=== PATIENT | female | born 1940 | race American Indian/Alaskan Native ===

== ENCOUNTER 2017-07-02 08:03 | Emergency (ER) | payer MEDICARE ==
[2017-07-02 08:17] VITALS: BP 169/78
--- NOTE | 2017-07-02 11:27 | XRay Report ---
LEFT ANKLE, 3 views: History: Left ankle pain after fall. Bone mineralization is normal. No acute osseous abnormality or joint pathology is identified. There is severe diffuse soft tissue swelling. IMPRESSION: Soft tissue swelling. No acute osseous injury identified.
--- NOTE | 2017-07-02 11:57 | Emergency Department Report ---
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 Complaint: extremity pain Onset/Timin -: days(s) Location: left History of Same: No Radiation: none Severity scale (0 -10): 4 Quality: aching Consistency: constant Worsens with: nothing Associated Symptoms: denies other symptoms - Related Data Previous Rx's Medication Instructions Recorded Last Taken Type Ibuprofen 600 mg PO Q4-6H #30 tablet 07/02/17 Unknown Rx Allergies Allergy/AdvReac Type Severity Reaction Status Date / Time No Known Allergies Allergy Unverified 07/02/17 08:10 ED Review of Systems ROS: Stated complaint: LEFT FOOT SWOLLEN Other details as noted in HPI Constitutional: denies: chills, fever Eyes: denies: eye pain, eye discharge, vision change ENT: denies: ear pain, throat pain Respiratory: denies: cough, shortness of breath, wheezing Cardiovascular: denies: chest pain, palpitations Endocrine: no symptoms reported Gastrointestinal: denies: abdominal pain, nausea, diarrhea Genitourinary: denies: urgency, dysuria, discharge Musculoskeletal: joint swelling. denies: back pain, arthralgia Skin: denies: rash, lesions Neurological: denies: headache, weakness, paresthesias Psychiatric: denies: anxiety, depression Hematological/Lymphatic: denies: easy bleeding, easy bruising ED Past Medical Hx - Past Medical History Previous Medical History?: Yes Hx Hypertension: Yes Additional medical history: high cholestrol/otseporesis - Surgical History Past Surgical History?: No - Social History Smoking Status: Never Smoker Substance Use Type: None - Medications Home Medications: Home Medications Medication Instructions Recorded Confirmed Last Taken Type Ibuprofen 600 mg PO Q4-6H #30 tablet 07/02/17 Unknown Rx ED Physical Exam - General Limitations: Physical Limitation General appearance: alert, in no apparent distress - Head Head exam: Present: atraumatic, normocephalic - Eye Eye exam: Present: normal appearance - ENT ENT exam: Present: mucous membranes moist - Neck Neck exam: Present: normal inspection - Respiratory Respiratory exam: Present: normal lung sounds bilaterally. Absent: respiratory distress - Cardiovascular Cardiovascular Exam: Present: regular rate, normal rhythm. Absent: systolic murmur, diastolic murmur, rubs, gallop - GI/Abdominal GI/Abdominal exam: Present: soft, normal bowel sounds - Extremities Exam Extremities exam: Present: normal inspection - Expanded Lower Extremity Exam Left Ankle exam: Present: tenderness, swelling - Back Exam Back exam: Present: normal inspection - Neurological Exam Neurological exam: Present: alert, oriented X3 - Psychiatric Psychiatric exam: Present: normal affect, normal mood - Skin Skin exam: Present: warm, dry, intact, normal color. Absent: rash ED Course Vital Signs 07/02/17 08:11 Temperature 98.5 F Pulse Rate 77 Blood Pressure 169/78 O2 Sat by Pulse 99 Oximetry ED Medical Decision Making - Radiology Data left ankle edema Impression :soft tissue swelling no acute osseous injury identified - Medical Decision Making Left ankle sprain susan wrap and follow up with orthopedic Critical care attestation.: If time is entered above; I have spent that time in minutes in the direct care of this critically ill patient, excluding procedure time. ED Disposition Clinical Impression: Left ankle sprain Qualifiers: Encounter type: initial encounter Involved ligament of ankle: other ligament Qualified Code(s): S93.492A - Sprain of other ligament of left ankle, initial encounter Disposition: TO HOME OR SELFCARE Is pt being admited?: No Does the pt Need Aspirin: No Condition: Stable Prescriptions: Ibuprofen 600 mg PO Q4-6H #30 tablet Referrals: PRIMARY CARE, [Primary Care Provider] - 3-5 Days Time of Disposition: 12:03
== END 2017-07-02 12:17 | disposition home or self-care (01) ==
LOC: ED 08:03
DX: S93.402A Sprain of unspecified ligament of left ankle, initial encounter (principal); I10 Essential (primary) hypertension; E78.00 Pure hypercholesterolemia, unspecified; X58.XXXA Exposure to other specified factors, initial encounter; Y93.89 Activity, other specified; Y92.89 Other specified places as the place of occurrence of the external cause; Y99.8 Other external cause status
CPT/HCPCS: 99283

== ENCOUNTER 2020-05-21 15:31 | Emergency (ER) | payer MEDICARE ==
[2020-05-21 21:24] VITALS: BP 177/86
--- NOTE | 2020-05-21 21:30 | Emergency Department Report ---
ED Dizziness HPI - General Chief Complaint: Dizziness Stated Complaint: DIZZY Time Seen by Provider: 05/21/20 21:11 Source: patient Mode of arrival: Ambulatory Limitations: No Limitations - History of Present Illness Initial Comments: Chief complaint: "I just have been dizzy." HPI: This is a 79-year-old female with history of hypertension, hyperlipidemia, osteoporosis, bladder prolapse who presents with lightheadedness, dizziness since Tuesday. She started taking metronidazole on Tuesday prescribed by her primary care provider. Since starting that medicine on Tuesday, she had lightheadedness dizziness. She denies headache. She denies blurry vision. She denies chest pain. She denies abdominal pain. Her symptoms have improved. However she wanted to ensure that she did not have a stroke. Her PCP instructed her to stop taking the medication. No previous history of stroke. No previous history of heart attack. Patient is followed by lawn care specialist for a heart murmur. 2 months ago patient fell onto her left shoulder. She felt a knot in the area. MD Complaint: dizziness, lightheadedness -: Gradual, days(s) (5 days ago) Timing: gradual onset Description: lightheadedness History of Same: No History of Trauma: No Improves With: rest Worsens With: movement Associated Symptoms: denies other symptoms - Related Data Previous Rx's Medication Instructions Recorded Last Taken Type Ibuprofen 600 mg PO Q4-6H #30 tablet 07/02/17 Unknown Rx Allergies Allergy/AdvReac Type Severity Reaction Status Date / Time No Known Allergies Allergy Unverified 07/02/17 08:10 ED Review of Systems ROS: Stated complaint: DIZZY Other details as noted in HPI Comment: All other systems reviewed and negative Constitutional: denies: fever, malaise Respiratory: denies: cough, shortness of breath Cardiovascular: denies: chest pain, palpitations Gastrointestinal: denies: abdominal pain, nausea, vomiting Neurological: denies: headache, weakness, numbness, paresthesias, confusion, abnormal gait, vertigo ED Past Medical Hx - Past Medical History Previous Medical History?: Yes Hx Hypertension: Yes Additional medical history: high cholestrol/otseporesis - Surgical History Past Surgical History?: No - Social History Smoking Status: Never Smoker - Medications Home Medications: Home Medications Medication Instructions Recorded Confirmed Last Taken Type Ibuprofen 600 mg PO Q4-6H #30 tablet 07/02/17 Unknown Rx ED Physical Exam - General Limitations: No Limitations, Other (Normal steady gait without assistance) General appearance: alert, in no apparent distress - Head Head exam: Present: atraumatic, normocephalic - Eye Eye exam: Present: normal appearance - ENT ENT exam: Present: mucous membranes moist - Neck Neck exam: Present: normal inspection, full ROM - Respiratory Respiratory exam: Present: normal lung sounds bilaterally. Absent: respiratory distress, wheezes, rales, rhonchi - Cardiovascular Cardiovascular Exam: Present: regular rate, normal rhythm, normal heart sounds. Absent: systolic murmur, diastolic murmur, rubs, gallop - GI/Abdominal GI/Abdominal exam: Present: soft, normal bowel sounds. Absent: distended, tenderness, guarding, rebound - Extremities Exam Extremities exam: Present: normal inspection, other (Left shoulder: Full range of motion, no tenderness, no bruising, no laceration, no deformity or crepitus) - Neurological Exam Neurological exam: Present: alert, oriented X3 - Expanded Neurological Exam Expanded Patient oriented to: Present: person, place, time Speech: Present: fluid speech Cranial nerves: EOM's Intact: Normal Cerebellar function: Finger to Nose: Normal Sensory exam: Upper Extremity Light Touch: Normal Motor strength exam: RUE: 5, LUE: 5, RLE: 5, LLE: 5 Best Eye Response (Linden): (4) open spontaneously Best Motor Response (Lind[place]): (6) obeys commands Best Verbal Response ([place]): (5) oriented Ruth Total: 15 - Psychiatric Psychiatric exam: Present: normal affect, normal mood - Skin Skin exam: Present: warm, dry, intact, normal color. Absent: rash ED Course Vital Signs 05/21/20 05/21/20 16:06 21:23 Temperature 98.6 F Pulse Rate 73 69 Respiratory 18 16 Rate Blood Pressure 106/85 Blood Pressure 177/86 [Right] O2 Sat by Pulse 100 98 Oximetry ED Medical Decision Making - EKG Data EKG shows normal: sinus rhythm, axis, intervals, QRS complexes, ST-T waves Rate: normal - EKG Data Interpretation: normal EKG - Medical Decision Making Ms. Gay presents with lightheadedness. No indication of emergent cause such as CVA, GI bleed, ACS. Possible adverse effect of metronidazole. Patient recently received routine labs in the outpatient setting by her PCP. Consequently I did not feel that further lab testing will be required at this time considering patient is symptom-free. She will follow-up with her PCP tomorrow for further instruction. She understands to call 911 if symptoms return or new symptoms develop. Critical care attestation.: If time is entered above; I have spent that time in minutes in the direct care of this critically ill patient, excluding procedure time. ED Disposition Clinical Impression: Lightheadedness, Dizziness Disposition: DC-01 TO HOME OR SELFCARE Is pt being admited?: No Does the pt Need Aspirin: No Condition: Stable Instructions: Lightheadedness (ED), Dizziness (ED) Referrals: PRIMARY CARE, [Primary Care Provider] - ATUL
== END 2020-05-21 21:39 | disposition home or self-care (01) ==
LOC: ED 15:31
DX: R42 Dizziness and giddiness (principal); I10 Essential (primary) hypertension; Z79.1 Long term (current) use of non-steroidal anti-inflammatories (NSAID)
CPT/HCPCS: 93005; 99282

== ENCOUNTER 2021-04-20 16:28 | Emergency (ER) | payer MEDICARE ==
[2021-04-20 17:00] VITALS: BP 168/72
[2021-04-20 20:35] LABS: Hematocrit 38.2 % (30.3-42.9); Hemoglobin 13.4 gm/dl (10.1-14.3); Mean Corpuscular HGB Conc 35 % (30-34); Mean Corpuscular Volume 93 fl (79-97); Platelet Count 228 K/mm3 (140-440); Red Blood Count 4.12 M/mm3 (3.65-5.03); Red Cell Distribution Width 13.3 % (13.2-15.2)
[2021-04-20 20:45] LABS: Alanine Aminotransferase 12 units/L (7-56); Blood Urea Nitrogen 13 mg/dL (7-17); Calcium 9.4 mg/dL (8.4-10.2); Hemolysis Index 0
[2021-04-20 20:48] LABS: BUN/Creatinine Ratio 19
[2021-04-20 21:05] LABS: Albumin 3.9 g/dL (3.9-5)
--- NOTE | 2021-04-20 21:21 | Emergency Department Report ---
ED General Adult HPI - General Chief complaint: Extremity Problem,Nontraumatic Stated complaint: LT LEG SWELLING/NUMBNESS Time Seen by Provider: 04/20/21 20:05 Source: patient Mode of arrival: Ambulatory Limitations: No Limitations - History of Present Illness Initial comments: 80-year-old female patient with history of hyperlipidemia presents to the [facility] department with complaints of recurrent left lower extremity swelling/numbness starting last month. Patient has been evaluated by her primary care provider for this issue. She underwent imaging earlier this month, which showed "a problem with the blood flow to her legs." Today, her symptoms recurred, and her primary care provider sent her to the emergency department for further evaluation. Patient has no known history of venous thromboembolism. She is not anticoagulated. Symptoms today are consistent with prior flareups. Denies fever, chills, chest pain, shortness of breath, palpitations, weakness, skin color changes. Denies all other complaints at this time. - Related Data Previous Rx's Medication Instructions Recorded Last Taken Type Ibuprofen 600 mg PO Q4-6H #30 tablet 07/02/17 Unknown Rx Allergies Allergy/AdvReac Type Severity Reaction Status Date / Time No Known Allergies Allergy Unverified 07/02/17 08:10 ED Review of Systems ROS: Stated complaint: LT LEG SWELLING/NUMBNESS Other details as noted in HPI Other: GENERAL: Negative for fever. CARDIOVASCULAR: Negative for chest pain. PULMONARY: Negative for shortness of breath. GASTROINTESTINAL: Negative for abdominal pain. MUSCULOSKELETAL: Positive for swelling. NEUROLOGICAL: Positive for numbness INTEGUMENTARY: Negative for rash. ED Past Medical Hx - Past Medical History Previous Medical History?: Yes Hx Hypertension: Yes Additional medical history: high cholestrol/otseporesis - Surgical History Past Surgical History?: Yes Additional Surgical History: eye surgery, leg surgery - Social History Smoking Status: Never Smoker - Medications Home Medications: Home Medications Medication Instructions Recorded Confirmed Last Taken Type Ibuprofen 600 mg PO Q4-6H #30 tablet 07/02/17 Unknown Rx ED Physical Exam - General Limitations: No Limitations - Other Other exam information: General: Awake and alert. No acute distress. Head: Atraumatic, normocephalic. Eyes: EOMI. Pupils are equal and round. Normal sclera and conjunctiva. ENT: Oral mucosa is moist. Normal pharyngeal exam. Neck: Supple. No lymphadenopathy. Pulmonary: No respiratory distress. Clear to auscultation bilaterally. Cardiac: Regular rate and rhythm. Pulses are palpable and equal bilaterally. There is 1+ pretibial pitting edema to the left lower leg. Skin: Warm and dry. No rashes. Abdomen: Soft, non-tender, non-protuberant. No guarding, rigidity, or rebound. Bowel sounds are normal. No organomegaly or masses noted. Back: Normal alignment. No CVA tenderness. Extremities: Symmetrical. Full range of motion intact. Neurological: Alert and oriented, appropriately interactive, no focal deficits. Strength and sensation intact throughout. Ambulatory without assistance. Cranial nerves II-XII intact. Psych: Cooperative. Appropriate mood and affect. Speech is evenly metered. Thoughts are logically construed. ED Course Vital Signs 04/20/21 04/20/21 16:59 22:50 Temperature 98.2 F Pulse Rate 64 57 L Respiratory 20 17 Rate Blood Pressure 168/72 O2 Sat by Pulse 99 97 Oximetry ED Medical Decision Making - Lab Data Result diagrams: 04/20/21 19:10 04/20/21 19:10 - Medical Decision Making Differential diagnosis including but not limited to: deep vein thrombosis, arterial occlusion, compartment syndrome, peripheral vascular disease On reevaluation, patient remains stable. Repeat neurovascular exam remains intact. She is ambulatory without assistance. No sonographic evidence of DVT. Symptoms have been recurring intermittently for several weeks, unchanged today. No chest pain or shortness of breath. Pain is appropriately proportional to exam findings without sensory deficits or pulse deficits. No clinical indication for further diagnostic work-up on an emergent basis at this time. Patient will be discharged home to follow-up with her primary care provider this week as previously scheduled. Patient expressed understanding and is agreeable to plan of care. Lifestyle modifications discussed. Strict return precautions provided. Repeat exam is unremarkable and benign. History, exam, diagnostic testing, and c urrent condition do not suggest worrisome pathology to warrant further testing, continued ED treatment, admission, or surgical evaluation at this point. Given the low probability of a significant medical illness, it would be more likely to result in harm than benefit to perform further testing at this stage. Discussed findings, presumptive diagnosis, need for follow-up and specific signs/symptoms that should prompt immediate return to the emergency department. Instructions were explained in detail to the patient in addition to giving written discharge information. Patient expressed understanding and was given the opportunity to ask questions, all of which were satisfactorily answered prior to discharge home. Critical care attestation.: If time is entered above; I have spent that time in minutes in the direct care of this critically ill patient, excluding procedure time. ED Disposition Clinical Impression: Peripheral edema Disposition: DC- TO HOME OR SELFCARE Is pt being admited?: No Does the pt Need Aspirin: No Condition: Stable Instructions: Peripheral Edema Additional Instructions: Continue medications as previously prescribed. Keep left leg elevated as often as possible to reduce swelling. Reduce your dietary sodium intake. Wear compression stockings as needed to reduce swelling. Follow-up with your primary care provider this week. Call tomorrow to schedule an appointment. Return to the emergency department immediately for new or worsening symptoms. Specifically, return to the emergency department immediately for chest pain, difficulty breathing, skin color changes, sensory changes, increased pain/swelling, or any other concerns. Referrals: [facility] [Provider Group] - 3-5 Days Time of Disposition: 22:43
[2021-04-20 21:39] LABS: RBC Morphology Normal; Total Cells Counted 100
--- NOTE | 2021-04-20 22:07 | Vascular Lab Report ---
DUPLEX DOPPLER LOWER EXTREMITY VEINS, LEFT INDICATION / CLINICAL INFORMATION: left leg swelling/numbness. TECHNIQUE: Duplex doppler imaging was performed through the veins of the left lower extremity using v enous compression and other maneuvers. COMPARISON: None available. FINDINGS: LEFT COMMON FEMORAL VEIN: Negative. LEFT FEMORAL VEIN: Negative. LEFT POPLITEAL VEIN: Negative. LEFT CALF VEINS: Negative. ADDITIONAL FINDINGS: None. IMPRESSION: 1. No sonographic evidence for DVT in the left lower extremity. Signer Name: Jimi Pond DO Signed: 04/20/2021 10:03 PM Workstation Name: [id number]
== END 2021-04-20 22:50 | disposition home or self-care (01) ==
LOC: ED 16:28
DX: R60.0 Localized edema (principal); I10 Essential (primary) hypertension; E78.00 Pure hypercholesterolemia, unspecified
CPT/HCPCS: 36415; 80053; 83880; 85007; 85025; 99284

== ENCOUNTER 2022-06-17 11:32 | Emergency (ER) | payer MEDICARE ==
[2022-06-18] MEDS ORDERED: MECLIZINE 25 MG TAB PO ONE (06:41)
[2022-06-18 06:57] VITALS: BP 194/49
--- NOTE | 2022-06-18 07:34 | Cat Scan Report ---
CT head/brain wo con INDICATION / CLINICAL INFORMATION: Headache. TECHNIQUE: Axial CT imaging of the brain was obtained without contrast. Coronal and sagittal reformatted imaging obtained and reviewed. All CT scans at this location are performed using CT dose reduction for ALAR A by means of automated exposure control. COMPARISON: None available. FINDINGS: No intracranial hemorrhage, mass or midline shift. No extra-axial fluid collection or suggestion of a cute territorial infarction. Ventricular system and basilar cisterns are unremarkable. Mild microvasc ular angiopathy noted. Age-appropriate cerebral and cerebellar atrophy. Visualized paranasal sinuses are grossly clear. Mastoid air cells are clear. No calvarial abnormality . IMPRESSION: 1. No acute intracranial abnormality. 2. Paranasal sinuses are well aerated and clear. Signer Name: Maryan Wolff MD Signed: 06/18/2022 7:29 AM Workstation Name: [id number]
[2022-06-18 08:04] LABS: Alanine Aminotransferase 15 units/L (7-56); Albumin 3.9 g/dL (3.9-5); Blood Urea Nitrogen 8 mg/dL (7-17); Calcium 9.3 mg/dL (8.4-10.2); Hemolysis Index 0
[2022-06-18 08:13] LABS: BUN/Creatinine Ratio 11
[2022-06-18 08:25] LABS: Basophils % (Auto) 0.9 % (0.0-1.8); Eosinophils # (Auto) 0.2 K/mm3 (0.0-0.4); Eosinophils % (Auto) 4.3 % (0.0-4.3); Hemoglobin 13.2 gm/dl (10.1-14.3); Lymphocytes # (Auto) 1.7 K/mm3 (1.2-5.4); Lymphocytes % (Auto) 45.7 % (13.4-35.0); Mean Corpuscular HGB Conc 35 % (30-34); Mean Corpuscular Volume 91 fl (79-97); Monocytes # (Auto) 0.4 K/mm3 (0.0-0.8); Monocytes % (Auto) 10.2 % (0.0-7.3); Platelet Count 261 K/mm3 (140-440); Red Cell Distribution Width 13.1 % (13.2-15.2)
--- NOTE | 2022-06-18 08:48 | Emergency Department Report ---
ED Dizziness [facility] - General Chief Complaint: Dizziness Stated Complaint: WEAK,DIZZY Time Seen by Provider: 06/18/22 06:40 Source: patient Mode of arrival: Ambulatory Limitations: No Limitations - History of Present Illness Initial Comments: 82-year-old -[place] female with history of hypertension, who reports having dizziness for approximately 1 week says dizziness gets worse when turning her head or standing up. Denies having any head trauma denies having any weakness fever chills. MD Complaint: dizziness, lightheadedness -: Gradual Timing: gradual onset Description: lightheadedness, off-balance History of Same: No History of Trauma: No Severity: mild Improves With: remaining still Associated Symptoms: denies other symptoms. denies: ataxia, chest pain - Related Data Previous Rx's Medication Instructions Recorded Last Taken Type Ibuprofen 600 mg PO Q4-6H #30 tablet 07/02/17 Unknown Rx Meclizine [Antivert] 12.5 mg PO BID PRN #10 06/18/22 Unknown Rx Allergies Allergy/AdvReac Type Severity Reaction Status Date / Time No Known Allergies Allergy Verified 06/17/22 11:46 ED Review of Systems ROS: Stated complaint: WEAK,DIZZY Other details as noted in HPI ED Past Medical Hx - Past Medical History Hx Hypertension: Yes Additional medical history: high cholestrol/otseporesis - Surgical History Additional Surgical History: eye surgery, leg surgery - Social History Smoking Status: Never Smoker - Medications Home Medications: Home Medications Medication Instructions Recorded Confirmed Last Taken Type Ibuprofen 600 mg PO Q4-6H #30 tablet 07/02/17 Unknown Rx Meclizine [Antivert] 12.5 mg PO BID PRN #10 06/18/22 Unknown Rx ED Physical Exam - General General appearance: in no apparent distress - Head Head exam: Present: atraumatic, normocephalic, normal inspection - Eye Eye exam: Present: normal appearance, EOMI Pupils: Present: normal accommodation - ENT ENT exam: Present: normal exam, normal orophraynx, mucous membranes moist - Neck Neck exam: Present: normal inspection. Absent: tenderness, full ROM - Respiratory Respiratory exam: Present: normal lung sounds bilaterally. Absent: respiratory distress - Cardiovascular Cardiovascular Exam: Present: regular rate, normal rhythm, normal heart sounds - GI/Abdominal GI/Abdominal exam: Present: soft. Absent: distended, tenderness - Extremities Exam Extremities exam: Present: normal inspection, full ROM, normal capillary refill. Absent: pedal edema - Back Exam Back exam: Present: normal inspection, full ROM - Neurological Exam Neurological exam: Present: alert, oriented X3, CN II-XII intact, normal gait, reflexes normal. Absent: motor sensory deficit - Psychiatric Psychiatric exam: Present: normal affect - Skin Skin exam: Present: warm ED Course Vital Signs 06/17/22 06/18/22 06/18/22 11:48 02:51 03:00 Temperature 98 F Pulse Rate 62 105 H Respiratory 20 20 15 Rate Blood Pressure 180/72 Blood Pressure 174/75 [Right] O2 Sat by Pulse 100 100 100 Oximetry 06/18/22 06/18/22 06/18/22 03:16 03:30 03:46 Temperature Pulse Rate 57 L 61 56 L Respiratory 13 17 11 L Rate Blood Pressure 155/64 155/64 165/69 Blood Pressure [Right] O2 Sat by Pulse 99 98 100 Oximetry 06/18/22 06/18/22 06/18/22 04:00 04:16 04:30 Temperature Pulse Rate 58 L 55 L 59 L Respiratory 14 16 14 Rate Blood Pressure 165/69 168/72 165/69 Blood Pressure [Right] O2 Sat by Pulse 99 100 100 Oximetry 06/18/22 06/18/22 06/18/22 04:46 05:00 05:16 Temperature Pulse Rate 61 56 L 56 L Respiratory 15 18 17 Rate Blood Pressure 157/61 168/72 142/61 Blood Pressure [Right] O2 Sat by Pulse 99 99 99 Oximetry 06/18/22 06/18/22 06/18/22 05:30 05:46 06:00 Temperature Pulse Rate 62 59 L 68 Respiratory 16 16 13 Rate Blood Pressure 142/61 155/64 155/64 Blood Pressure [Right] O2 Sat by Pulse 100 100 98 Oximetry 06/18/22 06/18/22 06/18/22 06:16 06:30 06:46 Temperature Pulse Rate 64 57 L 58 L Respiratory 14 16 15 Rate Blood Pressure 169/73 169/73 194/49 Blood Pressure [Right] O2 Sat by Pulse 99 100 100 Oximetry ED Medical Decision Making - Lab Data Result diagrams: 06/18/22 07:21 06/18/22 07:21 - EKG Data EKG shows normal: sinus rhythm Rate: normal - EKG Data When compared to previous EKG there are: no significant change - Radiology Data Negative acute head CT. Critical care attestation.: If time is entered above; I have spent that time in minutes in the direct care of this critically ill patient, excluding procedure time. ED Disposition Clinical Impression: Vertigo Disposition: 01 HOME / SELF CARE / HOMELESS Is pt being admited?: No Does the pt Need Aspirin: No Condition: Stable Instructions: Dizziness Prescriptions: Meclizine [Antivert] 12.5 mg PO BID PRN #10 PRN Reason: Vertigo Referrals: APOORVA GONZALEZ MD [Primary Care Provider] - 3-5 Days
--- NOTE | 2022-06-18 10:22 | Electrocardiograph Report ---
[facility] Test Date: 2022-06-17 Test Time: 11:51:52 Pat Name: MARIAN POOLE Department: Room: Gender: F Marketing Clerk: AF : 1940 Requested By: ED DOC Order Number: [id number] Reading MD: Kenneth Esquivel Measurements Intervals [place] Rate: 65 P: 59 WI: 177 QRS: 37 QRSD: 88 T: 66 QT: 393 QTc: 409 Interpretive Statements Sinus rhythm No previous ECG available for comparison Electronically Signed On 06-18-2022 10:22:22 EDT by Kenneth Esquivel
== END 2022-06-18 09:17 | disposition home or self-care (01) ==
LOC: ED 11:32
DX: R42 Dizziness and giddiness (principal); I10 Essential (primary) hypertension
CPT/HCPCS: 36415; 70450; 80053; 85025; 93005; 99284